=== PATIENT | female | born 1925 | race Caucasian/White ===

== ENCOUNTER → 2016-08-14 | Outpatient (CLI) | payer MEDICARE ==
[2016-08-14 18:35] LABS: CALCIUM LEVEL 9.6 MG/DL (8.8-10.2); CREATININE FOR GFR 1.63 MG/DL (0.55-1.02); GLOMERULAR FILTRATION RATE 31.6 (>32); POTASSIUM SERUM 4.9 MEQ/L (3.5-5.1)
== END ==
LOC: M SMT 14:02
PROVIDERS: ATTEND Urology
DX: R31.0 Gross hematuria (principal)
CPT/HCPCS: 36415; 80048; 88108; G0463

== ENCOUNTER → 2016-08-21 | Outpatient (CLI) | payer MEDICARE ==
[~2016-08-21] MED LIST: ISOVUE-370 76% 100ML VIAL (Q9967) As Ordered ONE
--- NOTE | 2016-08-21 11:19 | REP ---
REASON: Gross hematuria. COMPARISON: None. Contrast utilized: 100 mL of Isovue 370. The lung bases how patchy bibasilar opacities most consistent with subsegmental dependent atelectatic changes. There are no pleural or pericardial effusion. The precontrast enhanced portion of the examination shows hepatic and splenic densities to be within normal limits. There is no choleliths. There is no hydronephrosis or hydroureter. There are no urinary bladder calcifications. There are extensive bilateral pelvic calcifications likely vascular in origin. There are no nephroliths. There is no evidence of a definite ureterolith. There are some tiny calcifications which are very close in proximity to the distal ureters, particularly on the right. I cannot say that these definitely represent ureteroliths and since there is no related hydro whatsoever, I suspect they do not. The contrast-enhanced portion of the examination shows the liver, gallbladder, spleen, pancreas, adrenal glands, and kidneys to be within normal limits. The abdominal aorta and para-aortic regions are within normal limits for the patient's age. The bowel loops and their mesenteries are within normal limits. There is no evidence of free fluid or free air. CT PELVIS: There is no pelvic mass or adenopathy. There is no free fluid or free air. The bowel loops and their mesenteries are within normal limits. There is a tiny umbilical hernia through which mesentery protrudes. The aperture measures approximately a centimeter. Delayed imaging of the pelvis with filling to opacification of the urinary bladder shoes no evidence of a gross filling defect. Bone window technique through the examination shows chronic hip and spinal degenerative changes. IMPRESSION: No evidence of a renal or urinary collecting system mass and no evidence of hydronephrosis or hydroureter. There is a moderate to large hiatal hernia and a small ventral hernia. There is no evidence of acute intra-abdominal or intrapelvic disease. Findings as described above. Signed by Virgilio Rosen DO 08/21/2016 11:20 A
== END ==
LOC: M RAD 07:41
PROVIDERS: ATTEND Urology
DX: R31.0 Gross hematuria (principal)
CPT/HCPCS: 74178; Q9967